=== PATIENT | female | born 1975 | race Caucasian/White ===

== ENCOUNTER 2023-07-10 08:00 | Outpatient (RCR) | payer BC | END 2023-08-01 23:59 | disposition still patient (30) | LOC: PT 08:00 | DX: M54.2 Cervicalgia (principal); M54.6 Pain in thoracic spine; M54.10 Radiculopathy, site unspecified ==

== ENCOUNTER 2023-08-02 08:00 | Outpatient (RCR) | payer BC | END 2023-08-31 | LOC: PT | DX: M54.2 Cervicalgia (principal); M54.6 Pain in thoracic spine; M54.10 Radiculopathy, site unspecified ==